=== PATIENT | female | born 1955 | race Caucasian/White ===

== ENCOUNTER 2023-09-22 10:06 | Emergency (ER) | payer MEDICARE, OTHER ==
[2023-09-22 10:30] VITALS: BP 154/94; O2SAT 100
--- NOTE | 2023-09-22 11:41 | ED Physician Documentation ---
History of Present Illness - Stated complaint Stated Complaint: RT HAND INJURY - Chief complaint Chief Complaint: Laceration - Additonal information Additional information: Patient notes she was cutting bread earlier today when she accidentally sliced her right middle finger. Patient notes it was cut to the nail but did not injure her nailbed. Patient was able to control bleeding prior to arrival. Patient's last tetanus was about 2 years ago. She notes she is left-handed. She denies any numbness or tingling and has full range of motion of her right finger. PD PAST MEDICAL HISTORY - Past Medical History Past Medical History: No - Past Surgical History Ortho: Hip replacement, Shoulder arthroplasty, Carpal Tunnel surgery /[employer]: Hysterectomy, Breast reduction - Present Medications Home Medications: Ambulatory Orders Medication Instructions Recorded Confirmed No Known Home Medications 09/22/23 09/22/23 - Allergies Allergies/Adverse Reactions: Allergies Allergy/AdvReac Type Severity Reaction Status Date / Time No Known Drug Allergies Allergy Verified 09/22/23 10:22 - Social History Does the pt smoke?: No Smoking Status: Never smoker Does the pt drink ETOH?: No Does the pt have substance abuse?: No - Immunizations Immunizations are current?: Yes - POLST Patient has POLST: No PD ED PE NORMAL - Vitals Vital signs reviewed: Yes - General General: Alert and oriented X 3 - HEENT HEENT: Atraumatic - Cardiac Cardiac: RRR, No murmur, No gallop, No rub - Respiratory Respiratory: No respiratory distress, Clear bilaterally - Derm Derm: Normal color - Extremities Extremities: No deformity, Other (Laceration noted to distal portion near paronychia of left middle finger no signs of foreign body or damage to nail or nailbed. Bleeding appears under control. Laceration appears in a v shape, causing a flap to the lesion. No significant swelling. Good capillary refill. Sensation intact distally) Results - Vitals Vitals: Vital Signs - 24 hr 09/22/23 10:18 Temperature 36.0 C L Heart Rate 70 Respiratory 20 Rate Blood Pressure 154/94 H O2 Saturation 100 Oxygen O2 Source Room air Procedures - Laceration (location) right middle finger Wound type: Flap Neurovascular status: Sensory intact, Motor intact, Vascular intact Tendon involvement: Tendon intact Anesthesia: Lidocaine 1% Wound preparation: Irrigated copiously NS Skin layer closure: Nylon, Sutures - enter # (4) Other: Patient tolerated well, No complications, Dressing applied, Tetanus UTD PD Medical Decision Making - ED course Complexity details: reviewed old records, d/w patient ED course: Patient is a 68-year-old female presenting to the emergency department with laceration to right middle finger. Tetanus is up-to-date injury occurred few hours prior to arrival when patient was trying to cut bread. Patient is left- handed no numbness tingling or difficulty moving finger. Injury occurred at distal portion of right middle finger. No injury to the nailbed no foreign body. Wound cleaned thoroughly here in emergency department 4 sutures were placed. Patient tolerated procedure well. Patient given follow-up instructions to have sutures removed in 10 to 14 days. She is instructed keep wound clean dry watch for any signs of infection and return to the ED with any of the signs. Given no numbness or tingling full strength and range of motion on physical exam patient can follow-up with her PCP for suture removal. Departure - Departure Disposition: 01 Home, Self Care Clinical Impression: Laceration, Laceration of right middle finger Condition: Good Instructions: ED Laceration All, ED Laceration Repair Infec, ED Laceration Hand Comments: Come back for any signs of infection which would include: Redness, swelling, drainage, increased pain, or fevers. You can wash it soap and water. Keep it covered and moist with bacitracin ointme nt which is available over the counter; avoid neosporin. Follow-up with your physician in [] days for suture removal.You need to follow- up with your primary care doctor in 10 to 14 days to have sutures removed. Forms: PCP List
[2023-09-22] MEDS: lidocaine 1% 20 ML MDV SUBQ ONE (11:49)
== END 2023-09-22 12:37 | disposition home or self-care (01) ==
LOC: ED 10:06
DX: S61.312A Laceration without foreign body of right middle finger with damage to nail, initial encounter (principal); W45.8XXA Other foreign body or object entering through skin, initial encounter; Y93.G1 Activity, food preparation and clean up
CPT/HCPCS: 12001; 99283